=== PATIENT | male | born 1980 | race American Indian/Alaskan Native ===

== ENCOUNTER 2021-10-11 12:30 | Emergency (ER) | payer MEDICAID ==
--- NOTE | 2021-10-11 15:16 | Emergency Department Report ---
ED General Adult HPI - General Chief complaint: Nausea/Vomiting/Diarrhea Stated complaint: SO SICK VERY BAD Time Seen by Provider: 10/11/21 14:54 Source: patient Mode of arrival: Ambulatory Limitations: No Limitations - History of Present Illness Initial comments: 41-year-old male with a past medical history of schizophrenia presents to the ER today with multiple complaints. Patient states that he has been having these symptoms for about 8 months. He states that he has been having diarrhea, generalized weakness, decreased appetite, increased urinary frequency, intermittent palpitations, generalized fatigue, and he has been having shortness of breath but mainly when he wears his mask. He is also requesting a COVID-19 test. He states that he has been follow-up with his psychiatrist, he has mentioned these symptoms to his psychiatrist that his psychiatrist has been prescribed medications but he is unable to recall the name of the medications. He states that he has been taking the medications and they have not been helping. He states that he does not have a primary care doctor and he claims that this is his first time getting seen at an ER for his symptoms. He states that the last time he traveled back to [place] was in 2019. He denies any recent travel to [place] or any other countries recently. He denies any chest pain, abdominal pain, wheezing, cough, fever, chills or any additional symptoms at this time. MD Complaint: Diarrhea, feeling weak, decreased appetite, urinary frequency, palpitation -: month(s) - Related Data Allergies Allergy/AdvReac Type Severity Reaction Status Date / Time No Known Allergies Allergy Unverified 10/11/21 12:57 ED Review of Systems ROS: Stated complaint: SO SICK VERY BAD Other details as noted in HPI Comment: All other systems reviewed and negative Constitutional: malaise, weakness. denies: chills, fever Eyes: denies: eye pain, eye discharge, vision change ENT: denies: ear pain, throat pain, dental pain, hearing loss, epistaxis, congestion Respiratory: shortness of breath (when he wears his mask ). denies: cough, orthopnea, wheezing Cardiovascular: denies: chest pain, palpitations, dyspnea on exertion, edema, syncope, paroxysmal nocturnal dyspnea Gastrointestinal: diarrhea. denies: abdominal pain, nausea, vomiting, constipation, hematemesis, melena, hematochezia Genitourinary: denies: urgency, dysuria, frequency, hematuria, discharge, te sticular pain, testicular mass Musculoskeletal: denies: back pain, joint swelling, arthralgia Skin: denies: rash, lesions, change in color, change in hair/nails, pruritus Neurological: denies: headache, weakness, numbness, paresthesias, confusion, abnormal gait, vertigo Psychiatric: denies: anxiety, depression, auditory hallucinations, visual hallucinations, homicidal thoughts, suicidal thoughts Hematological/Lymphatic: denies: easy bleeding, easy bruising, swollen glands ED Physical Exam - General Limitations: No Limitations General appearance: alert, in no apparent distress - Head Head exam: Present: atraumatic, normocephalic, normal inspection - Eye Eye exam: Present: normal appearance, PERRL, EOMI Pupils: Present: normal accommodation - ENT ENT exam: Present: normal exam, mucous membranes moist - Neck Neck exam: Present: normal inspection, full ROM. Absent: meningismus - Respiratory Respiratory exam: Present: normal lung sounds bilaterally. Absent: respiratory distress, wheezes, rales, rhonchi - Cardiovascular Cardiovascular Exam: Present: regular rate, normal rhythm, normal heart sounds - GI/Abdominal GI/Abdominal exam: Present: soft. Absent: distended, tenderness, guarding, rebound - Neurological Exam Neurological exam: Present: alert, oriented X3, CN II-XII intact, normal gait - Psychiatric Psychiatric exam: Present: normal affect, normal mood - Skin Skin exam: Present: intact ED Course Vital Signs 10/11/21 10/11/21 12:41 16:49 Temperature 98.5 F Pulse Rate 71 78 Respiratory 17 18 Rate Blood Pressure 124/90 Blood Pressure 126/80 [Left] O2 Sat by Pulse 100 99 Oximetry ED Medical Decision Making - Lab Data Result diagrams: 10/11/21 15:27 10/11/21 15:27 - EKG Data EKG shows normal: sinus rhythm Rate: normal (61) - EKG Data Interpretation: normal EKG - Radiology Data Radiology results: report reviewed Patient: MARÍA BAKER MR#: [id number] 1 : 1980 Acct:[id number] Age/Sex: 41 / M ADM Date: 10/11/21 Loc: ED Attending Dr: Ordering Physician: YONNY DE LA CRUZ Date of Service: 10/11/21 Procedure(s): XR chest routine 2V Accession Number(s): [id number] cc: YONNY DE LA CRUZ Fluoro Time In Minutes: CHEST 2 VIEWS INDICATION / CLINICAL INFORMATION: SOB/palpitation. COMPARISON: None available. FINDINGS: SUPPORT DEVICES: None. HEART / MEDIASTINUM: No significant abnormality. LUNGS / PLEURA: No significant pulmonary or pleural abnormality. No pneum othorax. ADDITIONAL FINDINGS: No significant additional findings. IMPRESSION: 1. No acute findings. Signer Name: Rupert Proctor MD Signed: 10/11/2021 3:41 PM Workstation Name: [id number] Transcribed By: JEB Dictated By: Rupert Proctor MD Electronically Authenticated By: Rupert Proctor MD Signed Date/Time: 10/11/211540 DD/ 40 TD/TT: - Medical Decision Making All labs reviewed and unremarkable. EKG does not show STEMI, significant dysrhythmia or acute acute ischemic changes. His chest x-ray is normal. Candis ent is sitting comfortably on the table in the room on his phone. He does not appear to be any significant distress. He appears well-hydrated. Chest is clear to auscultation. His abdomen is soft and nontender. He is not toxic or ill-appearing. He is neurologically intact with a normal gait. No meningeal signs on exam. He appears mentally stable. His vital signs are stable. Patient symptoms appear to be chronic and exact cause at this time unclear. Discussed all results with patient. Recommend that he needs to follow-up with a primary care doctor who can continue evaluating him and also continue follow-up with his psychiatrist. Patient informed to follow-up with local clinic or [facility] for outpatient COVID-19 test. Patient expressed understanding for instructions and agree with plan. Patient stable at time of discharge. - Differential Diagnosis Diabetes, metabolic abnormality, dehydration, pneumonia, dysrhythmia Critical care attestation.: If time is entered above; I have spent that time in minutes in the direct care of this critically ill patient, excluding procedure time. ED Disposition Clinical Impression: Diarrhea, Palpitations, Fatigue Disposition: HOME / SELF CARE / HOMELESS Is pt being admited?: No Does the pt Need Aspirin: No Condition: Stable Instructions: Fatigue, Palpitations, [id number], Chronic Diarrhea Additional Instructions: Recommend that you follow-up with the primary care doctor listed discharge instructions for further treatment and evaluation of your symptoms. You can follow-up with local urgent care or pharmacy to get an outpatient COVID-19 test. You can take [id number] medications to help with you continue having diarrhea. Return to the ER if anything worsens. Referrals: BEE FORREST MD [Staff Physician] - 3-5 Days [facility] [Provider Group] - 3-5 Days Time of Disposition: 16:44
[2021-10-11 15:46] LABS: Basophils % (Auto) 0.6 % (0.0-1.8); Eosinophils # (Auto) 0.2 K/mm3 (0.0-0.4); Eosinophils % (Auto) 3.4 % (0.0-4.3); Hematocrit 49.7 % (35.5-45.6); Hemoglobin 16.2 gm/dl (11.8-15.2); Lymphocytes # (Auto) 2.2 K/mm3 (1.2-5.4); Lymphocytes % (Auto) 41.9 % (13.4-35.0); Mean Corpuscular HGB Conc 33 % (32-34); Mean Corpuscular Volume 93 fl (84-94); Monocytes # (Auto) 0.3 K/mm3 (0.0-0.8); Monocytes % (Auto) 6.6 % (0.0-7.3); Platelet Count 207 K/mm3 (140-440); Red Blood Count 5.33 M/mm3 (3.65-5.03)
--- NOTE | 2021-10-11 15:46 | XRay Report ---
CHEST 2 VIEWS INDICATION / CLINICAL INFORMATION: SOB/palpitation. COMPARISON: None available. FINDINGS: SUPPORT DEVICES: None. HEART / MEDIASTINUM: No significant abnormality. LUNGS / PLEURA: No significant pulmonary or pleural abnormality. No pneumothorax. ADDITIONAL FINDINGS: No significant additional findings. IMPRESSION: 1. No acute findings. Signer Name: Rupert Proctor MD Signed: 10/11/2021 3:41 PM Workstation Name: [id number]
[2021-10-11 16:02] LABS: Alanine Aminotransferase 27 units/L (7-56); Albumin 4.5 g/dL (3.9-5); BUN/Creatinine Ratio 8; Blood Urea Nitrogen 7 mg/dL (9-20); Calcium 9.2 mg/dL (8.4-10.2); Hemolysis Index 17
[2021-10-11 16:41] LABS: Bilirubin,Urine NEG (Negative); Blood,Urine NEG (Negative); Color,Urine Colorless (Yellow); Protein,Urine <15 mg/dL mg/dL (Negative); RBC,Urine < 1.0 /HPF (0.0-6.0); Urobilinogen,Urine < 2.0 mg/dL (<2.0); WBC,Urine < 1.0 /HPF (0.0-6.0)
[2021-10-11 16:53] VITALS: BP 126/80
--- NOTE | 2021-10-12 13:19 | Electrocardiograph Report ---
[facility] Test Date: 2021-10-11 Test Time: 16:26:49 Pat Name: MARÍA BAKER Department: Room: Gender: M [employer]: NURSE : 1980 Requested By: YONNY DE LA CRUZ Order Number: [id number] Reading MD: Chris Sanchez Measurements Intervals Kemp Rate: 61 P: 61 PA: 162 QRS: 7 QRSD: 97 T: -21 QT: 412 QTc: 414 Interpretive Statements Sinus rhythm Incomplete right bundle branch block No previous ECG available for comparison Electronically Signed On 10-12-2021 13:19:22 EST by Chris Sanchez
== END 2021-10-11 16:54 | disposition home or self-care (01) ==
LOC: ED 12:30
DX: R19.7 Diarrhea, unspecified (principal); R00.2 Palpitations; R53.83 Other fatigue
CPT/HCPCS: 36415; 71046; 80053; 81001; 83735; 84484; 85025; 93005; 99284